=== PATIENT | male | born 1990 | race Two or more races ===

== ENCOUNTER 2024-11-15 10:12 | Emergency (ER) | payer OTHER ==
[~2024-11-15] VITALS: Ht 180.3 cm; Wt 139.1 kg
--- NOTE | 2024-11-15 11:17 | ED.PDOC ---
Eye-HPI HPI Comments 34 y/o M, with no prior medical history presents to the ED for CC of Right eye problem. Patient states, he has been experiencing right eye pain following, his dog scratching his eye this morning (11/15/24). Patient reports, blurred vision following trauma. No other symptoms or modifying factors present at this time. Started 11/15/24 Denies eye discharge Denies hearing changes, nausea, vomiting Denies sensitivity to light Chief Complaint: Eye Problem Time Seen by MD: 11:25 Reviewed Notes: Nurses Notes, Medications, Allergies Allergies: Coded Allergies: NO KNOWN ALLERGIES (Unverified , 11/15/24) Home Meds Active Scripts Erythromycin (Erythromycin) 5 Mg/Gm Oin, 1 APPLIC OP TID for 7 Days, #5 GRAMS 0 Refills APPLY 1 CM RIBBON INTO THE AFFECTED EYE 3 TIMES A DAY FOR SEVEN DAYS Prov:SAMINA HENDERSON NP 11/15/24 Mode of Arrival: Ambulatory Timing: Hours Duration: Since onset Prehospital treatment: None Quality: Pain Eye Location: Right Lids: Normal Conjunctiva: Normal Cornea: Normal EOM: Normal Fundus: Normal Slit lamp exam: Normal Anterior chamber: Normal Mouth: Normal ENT Ear Exam: Normal Nose: Normal Sinuses: Normal Oropharynx: Normal Onset: Trauma Throat Exposed to: None History of: None Last Tetanus: Unknown Associated signs and symptoms: None Past Medical History PAST MEDICAL HISTORY: Denies Family History Family History: Reviewed,noncontributory to illness Social History Smoker: Non-Smoker Alcohol: Denies ETOH Use Drugs: Denies Drug Use All Other Systems: Reviewed and Negative ( PER HPI) Physical Exam General Appearance: No Apparent Distress, Normal HEENT: Cornea (R), Normal ENT Inspection, Pharynx Normal, TMs Normal, Other (os 20/30, od 20/40, uncorrected, no gross abnormality, no orbital swelling or erythema, or TTP around orbital rim, right sided conjectival injection, no forgein bodies, EOMS intact and chano) Neck: Full Range of Motion, Non-Tender, Normal, Normal Inspection Respiratory: Chest Non-Tender, Lungs Clear, No Accessory Muscle Use, No Respiratory Distress, Normal Breath Sounds Cardiovascular: No Edema, No Murmur, No Gallop, Normal Peripheral Pulses, Re gular Rate/Rhythm Breast Exam: Deferred Gastrointestinal: No Organomegaly, Non Tender, No Pulsatile Mass, Normal Bowel Sounds, Soft Genitalia: Deferred Pelvic: Deferred Rectal: Deferred Extremities: No calf tenderness, Normal capillary refill, Normal inspection, Normal range of motion, Non-tender, No pedal edema Musculoskeletal : Apperance: Normal Neurologic: Alert, incinerator operator II-XII nml as Tested, No Motor Deficits, Normal Affect, Normal Mood, No Sensory Deficits Cerebellar Function: Normal Reflexes: Normal Skin: Dry, Normal Color, Warm Lymphatic: No Adenopathy Was a procedure done? Was a procedure done?: No EENT DIFF Eye: Corneal Abrasion, Corneal Lacerations X-Ray, Labs, Meds, VS Vital Signs Date Time Temp Pulse Resp B/P (MAP) Pulse Ox O2 Delivery O2 Flow Rate FiO2 11/15/24 11:18 92 16 97 Room Air 11/15/24 11:18 98.3 92 16 157/85 (109) 97 98.3 11/15/24 10:29 98.3 92 16 157/85 (109) 97 98.3 Current Medications Medications (Trade) Dose Ordered Sig/Yayo Route Start Time Stop Time Status Last Admin Tetracaine HCl (Tetracaine 0.5% Opth Soln) 1 drop ONCE ONCE EACHEYE 11/15/24 12:30 11/15/24 12:31 DC 11/15/24 12:28 Fluorescein Sodium (Ful-Jeri) 1 mg ONCE ONCE EACHEYE 11/15/24 12:30 11/15/24 12:31 DC 11/15/24 12:28 Diphtheria/ Tetanus/Acell Pertussis (Boostrix T-Dap) 0.5 ml ONCE ONCE IM 11/15/24 12:30 11/15/24 12:31 DC 11/15/24 12:29 X-Ray, Labs, Meds, VS Comment Patient arrives alert and oriented, ABC's intact, afebrile, vital signs stable, saturating well in room air After ROS and physical examination, differentials considered but not limited to: Differential diagnosis considered includes: corneal abrasion, uveitis, foreign body, retinal detachment unlikey given age and no history flashes nor floaters. Patient alert, vss, well appearing. PERRLA, EOMi, visual acuity not affected. Patient appears to have an uncomplicated corneal abrasion. No evidence of foreign body, globe rupture, iritis, conjunctivitis or any other process requiring immediate medical or surgical intervention at this time. Vitals normal and reassuring Visual acuity done IOP: 14 Slit lamp exam with evidence of corneal abrasion Patient had good improvement with tetracaine Will prescribe topical erythromycin Tetanus updated Additional MDM Review of External, Non-ED records: External records reviewed. Discussion with independent historian (EMS, family) history obtained from the patient/parents (if applicable) at bedside Chronic conditions affecting care: None Social determinants of health affecting care: None Time of 1ST Reevaluation: 11:55 Reevaluation 1ST: Unchanged Patient Education/Counseling: Diagnosis, Treatment Family Education/Counseling: No Family Present Departure 1 Departure Time of Disposition: 12:55 Impression: Primary Impression: Right corneal abrasion Qualified Codes: S05.01XA - Injury of conjunctiva and corneal abrasion without foreign body, right eye, initial encounter Disposition: HOME / SELF CARE / HOMELESS Condition: Stable e-Prescriptions Erythromycin (Erythromycin) 5 Mg/Gm Oin 1 APPLIC OP TID for 7 Days, #5 GRAMS 0 Refills APPLY 1 CM RIBBON INTO THE AFFECTED EYE 3 TIMES A DAY FOR SEVEN DAYS Prov: SAMINA HENDERSON NP 11/15/24 Critical Care Note Critical Care Time?: No Stability Stability form required: No Heart Score Heart Score: Heart Score Response (Comments) Value History N/A 0 EKG N/A 0 Age N/A 0 Risk Factors N/A 0 Troponin N/A 0 Total 0 I personally scribed for SAMINA HENDERSON NP ([email or web address]) on 11/15/24 at 11:17. Electronically submitted by Cailin Squires ([employer]). I personally scribed for SAMINA HENDERSON NP ([email or web address]) on 11/15/24 at 11:32. Electronically submitted by Cailin qSuires ([employer]). I personally scribed for SAMINA HENDERSON NP ([email or web address]) on 11/15/24 at 11:34. Electronically submitted by Cailin Squires ([employer]). SAMINA HENDERSON NP Nov 15, 2024 11:17
[2024-11-15 11:18] VITALS: BP 157/85; PULSE 92; RESP 16; TEMP 98.3; O2SAT 97
[2024-11-15] MEDS: TETRACAINE HCL 0.5% OPTH(EYE) SOLN 4ML EACHEYE ONE (12:28)
[2024-11-15] MEDS: FLUORESCEIN SOD OPTH TEST STRIP EACHEYE ONE (12:28)
[2024-11-15] MEDS: TETANUS-DIPTH-ACEL PERTUSSIS 0.5ML SYR Tdap IM ONE (12:29)
[2024-11-15] MEDS ORDERED: ERY05OO OP (12:56)
== END 2024-11-15 13:01 | disposition home or self-care (01) ==
LOC: ER 10:12
DX: S05.01XA Injury of conjunctiva and corneal abrasion without foreign body, right eye, initial encounter (principal); X58.XXXA Exposure to other specified factors, initial encounter; Y93.89 Activity, other specified; Y92.89 Other specified places as the place of occurrence of the external cause; Y99.8 Other external cause status
CPT/HCPCS: 90471; 90715